=== PATIENT | female | born 1975 ===

== ENCOUNTER 2025-07-16 10:23 | Day surgery (SDC) | payer OTHER ==
[2025-07-16] MEDS ORDERED: DIPHENHYDRAMINE HCL 50 MG/ML VIAL 1ML IV ONE (16:15)
[2025-07-16] MEDS ORDERED: ONDANSETRON HCL 2 MG/ML VIAL IV ONE (16:15)
[2025-07-16] MEDS ORDERED: MIDAZOLAM HCL 2 MG/2 ML VIAL IV ONE (16:15)
[2025-07-16] MEDS ORDERED: fentaNYL CITRATE 50 MCG/ML AMPUL IV PUSH ONE (16:15)
== END 2025-07-16 17:20 | disposition home or self-care (01) ==
LOC: AMB-ENDOS 10:23
PROVIDERS: ATTEND Colon & Rectal Surgery
DX: K63.5 Polyp of colon (principal); K62.1 Rectal polyp; K62.5 Hemorrhage of anus and rectum; Z88.3 Allergy status to other anti-infective agents